=== PATIENT | female | born 1945 | race Caucasian/White ===

== ENCOUNTER 2022-12-26 11:22 | Inpatient (IN) | payer MEDICARE ==
[~2022-12-26] VITALS: Ht 170.2 cm; Wt 106.4 kg
[~2022-12-26 11:22] MED LIST: ATORVASTATIN PO; CHOL200013 PO; COUMADIN PO; CYAN250014 PO; ESCITALOPRAM PO; FERR159T2 PO; LEVO112T7 PO; LEVOTHYROXINE PO; METOPROLOL TAR PO; OMEPRAZOLE PO; VALS80TA2 PO; [UNRECOGNIZED DRUG - OTHER] PO
[2022-12-26 11:43] LABS: BASOPHILS % (AUTO) 0.5 % (0.0-5.0); EOSINOPHILS % (AUTO) 1.7 % (0.0-8.0); HEMATOCRIT 40.2 % (36-48); LYMPHOCYTES % (AUTO) 13.9 % (21.0-51.0); MEAN CORPUSCULAR HEMOGLOBIN 28.8 pg (27.0-33.0); MEAN CORPUSCULAR HGB CONC 31.8 g/dL (32.0-36.0); MEAN CORPUSCULAR VOLUME 90.3 fL (79-99); MONOCYTES % (AUTO) 7.7 % (3.0-13.0); NEUTROPHILS % (AUTO) 75.9 % (40.0-77.0); PLATELET COUNT (AUTO) 145 K/uL (130-400); RED BLOOD CELL COUNT(AUTO) 4.45 MIL/uL (4.00-5.50); RED CELL DISTRIBUTION WIDTH 14.4 % (11.0-15.5); WHITE BLOOD COUNT (AUTO) 5.8 K/uL (4.8-10.8)
[2022-12-26 11:53] LABS: POTASSIUM 3.7 mmol/L (3.5-5.1)
[2022-12-26 11:57] LABS: ALBUMIN 3.2 g/dL (3.5-5.0); MAGNESIUM 1.6 mg/dL (1.80-2.40); TOTAL PROTEIN, SERUM 6.3 g/dL (6.0-8.3)
[2022-12-26 12:33] LABS: B-TYPE NATRIURETIC PEPTIDE 223 pg/mL (0-100)
[2022-12-26 12:35] LABS: APPEARANCE,URINE CLEAR (CLEAR); BILIRUBIN,URINE NEGATIVE (NEGATIVE); COLOR,URINE LIGHT-YELLOW (YELLOW); GLUCOSE, URINE (UA) NEGATIVE (NEGATIVE); KETONES,URINE NEGATIVE (NEGATIVE); LEUKOCYTE ESTERASE ,URINE 25 Leu/uL (NEGATIVE); NITRATE,URINE NEGATIVE (NEGATIVE); OCCULT BLOOD,URINE NEGATIVE (NEGATIVE); PH,URINE 6.5 (5.0-8.0); PROTEIN,URINE 20 mg/dL (NEGATIVE); UROBILINOGEN,URINE 3 mg/dL (0.2-1.0)
[2022-12-26 12:55] LABS: BACTERIA,URINE RARE /HPF (None Seen); SQUAMOUS EPITHELIAL CELL,UR RARE /HPF (0-2)
[2022-12-26 15:24] LABS: INR 2.42 (0.85-1.15); PROTHROMBIN TIME 25.1 SEC (9.6-11.6)
[2022-12-26 15:25] LABS: PARTIAL THROMBOPLASTIN TIME 38.4 SEC (26.3-35.5)
[2022-12-26] MEDS ORDERED: MAGNESIUM 2GM PREMIX 50ML 50 ML IV ONE ×2 (15:25→15:30)
[2022-12-26] MEDS ORDERED: IOHEXOL 350 MG/ML 100ML INFUS..BTL IV ONE (15:33)
[2022-12-26] MEDS ORDERED: FUROSEMIDE 40MG VIAL IV ONE (19:00)
[2022-12-26] MEDS ORDERED: HYDRALAZINE 20MG/ML VIAL IV PRN (20:00)
[2022-12-26] MEDS: FAMOTIDINE 20MG VIAL IV SCH (22:00)
[2022-12-26 22:35] VITALS: BP 135/90
[2022-12-26] MEDS ORDERED: WARF6TAB49 PO (22:49)
[2022-12-26] MEDS ORDERED: WARF4TAB72 PO (22:49)
[2022-12-27] MEDS ORDERED: ONDANSETRON 4MG INJ IVP PRN (03:30)
[2022-12-27] MEDS ORDERED: ACETAMINOPHEN 325 MG TAB PO PRN (03:30)
[2022-12-27] MEDS ORDERED: LIDOCAINE HCL-MPF 1% 2ML VIAL IV PRN (03:30)
[2022-12-27] MEDS ORDERED: POTASSIUM CHLORIDE 10% ELIXIR 20 MEQ/15 ML UDCUP PO PRN (03:30)
[2022-12-27] MEDS ORDERED: KCL 20 MEQ ERTAB PO PRN (03:30)
[2022-12-27] MEDS ORDERED: POTASSIUM CHLORIDE 20MEQ/100ML 100 ML IV PRN (03:30)
[2022-12-27] MEDS ORDERED: MAGNESIUM 2GM PREMIX 50ML 50 ML IV PRN (03:30)
[2022-12-27 04:48] VITALS: BP 136/71
[2022-12-27 06:21] LABS: CREATININE 0.7 mg/dL (0.5-1.5); MAGNESIUM 1.8 mg/dL (1.80-2.40); POTASSIUM 3.5 mmol/L (3.5-5.1)
[2022-12-27 06:28] LABS: INR 2.37 (0.85-1.15); PROTHROMBIN TIME 24.6 SEC (9.6-11.6)
[2022-12-27 07:00] VITALS: BP 137/92
[2022-12-27] MEDS: FAMOTIDINE 20MG VIAL IV SCH ×2 (08:46→19:28)
[2022-12-27 11:00] VITALS: BP 128/78
[2022-12-27] MEDS ORDERED: CA C1TAB90 PO (11:16)
[2022-12-27] MEDS ORDERED: METO-408 PO (11:16)
[2022-12-27] MEDS ORDERED: POTA-200 PO (11:16)
[2022-12-27] MEDS ORDERED: VITA-348 PO (11:16)
[2022-12-27] MEDS ORDERED: ESCI-8 PO (11:16)
[2022-12-27] MEDS ORDERED: FURO40TA5 PO (11:16)
[2022-12-27] MEDS ORDERED: FLEC100 PO (11:16)
[2022-12-27] MEDS ORDERED: VALS80TA30 PO (11:16)
[2022-12-27] MEDS ORDERED: CYAN100084 PO (11:16)
[2022-12-27] MEDS ORDERED: ATOR10TA69 PO (11:16)
[2022-12-27] MEDS ORDERED: OMEP20CA12 PO (11:16)
[2022-12-27] MEDS ORDERED: LEVO112C4 PO (11:16)
[2022-12-27] MEDS: PHARMACY COMMUNICATION MISC SCH ×2 (13:30→19:28)
[2022-12-27] MEDS ORDERED: PHARMACY COMMUNICATION MISC SCH (13:30)
[2022-12-27 16:00] VITALS: BP 138/53
[2022-12-27] MEDS ORDERED: WARFARIN SODIUM 2 MG TAB PO SCH (16:00)
[2022-12-27] MEDS: FLECAINIDE ACETATE 100 MG TABLET PO SCH (19:28)
[2022-12-27] MEDS: ATORVASTATIN 10 MG TABLET PO SCH (19:28)
[2022-12-27 20:27] VITALS: BP 139/66
[2022-12-27 23:59] VITALS: BP 105/74
[2022-12-28] MEDS: PHARMACY COMMUNICATION MISC SCH ×2 (01:14→19:30)
[2022-12-28 04:55] LABS: EOSINOPHILS % (AUTO) 2.9 % (0.0-8.0); HEMATOCRIT 36.9 % (36-48); LYMPHOCYTES % (AUTO) 21.3 % (21.0-51.0); MEAN CORPUSCULAR HEMOGLOBIN 28.5 pg (27.0-33.0); MEAN CORPUSCULAR HGB CONC 31.2 g/dL (32.0-36.0); MEAN CORPUSCULAR VOLUME 91.6 fL (79-99); MONOCYTES % (AUTO) 11.1 % (3.0-13.0); NEUTROPHILS % (AUTO) 63.5 % (40.0-77.0); PLATELET COUNT (AUTO) 124 K/uL (130-400); RED BLOOD CELL COUNT(AUTO) 4.03 MIL/uL (4.00-5.50); RED CELL DISTRIBUTION WIDTH 14.6 % (11.0-15.5); WHITE BLOOD COUNT (AUTO) 4.1 K/uL (4.8-10.8)
[2022-12-28] MEDS: LEVOTHYROXINE 112 MCG TABLET PO SCH (04:57)
[2022-12-28 04:59] VITALS: BP 138/74
[2022-12-28 05:11] LABS: INR 2.49 (0.85-1.15); PROTHROMBIN TIME 25.8 SEC (9.6-11.6)
[2022-12-28 05:23] LABS: ALBUMIN 2.7 g/dL (3.5-5.0); CREATININE 0.7 mg/dL (0.5-1.5); MAGNESIUM 1.9 mg/dL (1.80-2.40); POTASSIUM 3.7 mmol/L (3.5-5.1); TOTAL PROTEIN, SERUM 5.6 g/dL (6.0-8.3)
[2022-12-28 05:25] LABS: B-TYPE NATRIURETIC PEPTIDE 124 pg/mL (0-100)
[2022-12-28] MEDS ORDERED: NON-FORMULARY MEDICATION 1 EACH (Levothyroxine Sodium (Levothyroxine) 112 MCG) PO SCH (07:30)
[2022-12-28 08:00] VITALS: BP 143/72
[2022-12-28] MEDS: CA CARB PO SCH (08:39)
[2022-12-28] MEDS: METOPROLOL SUCCINATE 25 MG TAB.SR.24H PO SCH (08:39)
[2022-12-28] MEDS: VITAMIN E 400 UNIT CAPSULE PO SCH (08:39)
[2022-12-28] MEDS: VALSARTAN 80 MG PO SCH (08:39)
[2022-12-28] MEDS: ZN OXIDE PO SCH (08:39)
[2022-12-28] MEDS: CYANOCOBALAMIN (VITAMIN B-12) 1,000 MCG TABLET PO SCH (08:39)
[2022-12-28] MEDS: FAMOTIDINE 20MG VIAL IV SCH ×2 (08:39→19:36)
[2022-12-28] MEDS: FLECAINIDE ACETATE 100 MG TABLET PO SCH ×2 (08:39→19:36)
[2022-12-28] MEDS: VIT D3 PO SCH (08:39)
[2022-12-28] MEDS: ESCITALOPRAM 10MG PO SCH (08:39)
[2022-12-28] MEDS: MAG OX PO SCH (08:39)
[2022-12-28] MEDS ORDERED: VITAMIN E MIXED 400 UNIT PO SCH (09:00)
[2022-12-28] MEDS ORDERED: CYANOCOBALAMIN 1000 MCG PO SCH (09:00)
[2022-12-28] MEDS ORDERED: NON-FORMULARY MEDICATION 1 EACH (Escitalopram Oxalate 10 MG) PO SCH (09:00)
[2022-12-28 11:58] VITALS: BP 136/78
[2022-12-28 15:55] VITALS: BP 149/74
[2022-12-28] MEDS: WARFARIN SODIUM 2 MG TAB PO SCH (16:00)
[2022-12-28] MEDS: ATORVASTATIN 10 MG TABLET PO SCH (19:36)
[2022-12-28 20:38] VITALS: BP 126/74
[2022-12-28 23:54] VITALS: BP 130/86
[2022-12-29] MEDS: PHARMACY COMMUNICATION MISC SCH ×2 (01:10→07:30)
[2022-12-29 04:44] VITALS: BP 141/69
[2022-12-29] MEDS: LEVOTHYROXINE 112 MCG TABLET PO SCH (05:10)
[2022-12-29 08:15] VITALS: BP 137/75
[2022-12-29] MEDS: VALSARTAN 80 MG PO SCH (09:00)
[2022-12-29] MEDS: ESCITALOPRAM 10MG PO SCH (09:00)
[2022-12-29] MEDS: CYANOCOBALAMIN (VITAMIN B-12) 1,000 MCG TABLET PO SCH (09:00)
[2022-12-29] MEDS: METOPROLOL SUCCINATE 25 MG TAB.SR.24H PO SCH (09:00)
[2022-12-29] MEDS: CA CARB PO SCH (09:00)
[2022-12-29] MEDS: MAG OX PO SCH (09:00)
[2022-12-29] MEDS: VITAMIN E 400 UNIT CAPSULE PO SCH (09:00)
[2022-12-29] MEDS: VIT D3 PO SCH (09:00)
[2022-12-29] MEDS: ZN OXIDE PO SCH (09:00)
[2022-12-29] MEDS: FLECAINIDE ACETATE 100 MG TABLET PO SCH (09:00)
[2022-12-29] MEDS: FAMOTIDINE 20MG VIAL IV SCH (09:39)
[2022-12-29] MEDS ORDERED: FURO20TA6 PO (10:54)
[2022-12-29 11:46] VITALS: BP 135/78
[2022-12-29] MEDS: WARFARIN SODIUM 2 MG TAB PO SCH (15:54)
[2022-12-29 16:00] VITALS: BP 150/77
[2023-01-03] MEDS ORDERED: NON-FORMULARY MEDICATION 1 EACH (Warfarin Sodium 6 MG) PO SCH (09:00)
== END 2022-12-29 18:25 | disposition home or self-care (01) | DRG 291 ==
LOC: EDH 11:22 → EDHIP 19:54 → 4BH 21:42
PROVIDERS: ADMIT Hospitalist; ATTEND Hospitalist
DX: I11.0 Hypertensive heart disease with heart failure (principal); I50.43 Acute on chronic combined systolic (congestive) and diastolic (congestive) heart failure; J96.01 Acute respiratory failure with hypoxia; I48.20 Chronic atrial fibrillation, unspecified; D68.69 Other thrombophilia; E03.9 Hypothyroidism, unspecified; Z79.01 Long term (current) use of anticoagulants; E78.00 Pure hypercholesterolemia, unspecified; I25.10 Atherosclerotic heart disease of native coronary artery without angina pectoris; Z85.3 Personal history of malignant neoplasm of breast; Z86.711 Personal history of pulmonary embolism
CPT/HCPCS: 36415; 71045; 71270; 80048; 80053; 81001; 83735; 83880; 84484; 85025; 85610; 85730; 93005; 93306; 94760; G0378; J1940; J3475; J3490; Q9967

== ENCOUNTER 2024-03-12 06:18 | Day surgery (SDC) | payer MEDICARE ==
[2024-03-09 14:32] LABS: BASOPHILS # (AUTO) 0.03 K/uL (0.00-0.20); BASOPHILS % (AUTO) 0.6 % (0.0-5.0); EOSINOPHILS # (AUTO) 0.19 K/uL (0.00-0.70); HEMATOCRIT 40.3 % (36-48); IMMATURE GRANULOCYTE ABSOLUTE 0.01 K/uL (0-1); LYMPHOCYTES # (AUTO) 1.1 K/uL (1.0-4.8); LYMPHOCYTES % (AUTO) 21.9 % (21.0-51.0); MEAN CORPUSCULAR HGB CONC 30.8 g/dL (32.0-36.0); MONOCYTES # (AUTO) 0.5 K/uL (0.1-1.0); MONOCYTES % (AUTO) 9.6 % (3.0-13.0); NEUTROPHILS # (AUTO) 3.1 K/uL (1.8-7.7); NEUTROPHILS % (AUTO) 63.7 % (40.0-77.0); PLATELET COUNT (AUTO) 154 K/uL (130-400); RED BLOOD CELL COUNT(AUTO) 4.43 MIL/uL (4.00-5.50); RED CELL DISTRIBUTION WIDTH 14.6 % (11.0-15.5); WHITE BLOOD COUNT (AUTO) 4.8 K/uL (4.8-10.8)
[2024-03-09 14:43] LABS: PARTIAL THROMBOPLASTIN TIME 48.8 SEC (26.3-35.5)
[2024-03-09 14:45] LABS: CREATININE 0.9 mg/dL (0.5-1.0); POTASSIUM 4.2 mmol/L (3.5-5.1)
[2024-03-09 15:29] LABS: PROTHROMBIN TIME 43.4 SEC (9.6-11.6)
[2024-03-09 15:30] LABS: INR 4.08 (0.85-1.15)
[2024-03-09 16:23] VITALS: BP 115/55; PULSE 70; RESP 20
[~2024-03-12] VITALS: Ht 170.2 cm; Wt 105.7 kg
[2024-03-12] VITALS (8 sets, daily range): BP systolic 103–135; BP diastolic 38–64; PULSE 44–74; RESP 16–18
[~2024-03-12 06:18] MED LIST changes: +ATOR10TA69 PO; -ATORVASTATIN PO; +CHOL100040 PO; -CHOL200013 PO; -COUMADIN PO; +CYAN100084 PO; -CYAN250014 PO; +DRON400T7 PO; +ESCI-8 PO; -ESCITALOPRAM PO; -FERR159T2 PO; +FURO40TA5 PO; +LEVO112C4 PO; -LEVO112T7 PO; -LEVOTHYROXINE PO; +LOSA-418 PO; +METO50TA9 PO; -METOPROLOL TAR PO; +OMEP20CA12 PO; -OMEPRAZOLE PO; +OXYB5TAB20 PO; +POTA-200 PO; +VALS40TA11 PO; -VALS80TA2 PO; +WARF-67 PO; -[UNRECOGNIZED DRUG - OTHER] PO
[2024-03-12 06:57] LABS: PARTIAL THROMBOPLASTIN TIME 48.2 SEC (26.3-35.5)
[2024-03-12] MEDS ORDERED: LIDOCAINE HCL 2% VISCOUS 15 ML UDCUP PO ONE (07:00)
[2024-03-12 07:37] LABS: PROTHROMBIN TIME 39.7 SEC (9.6-11.6)
[2024-03-12 07:38] LABS: INR 3.71 (0.85-1.15)
[2024-03-12] MEDS: 0.9%NACL 1000ML 1,000 ML IV SCH (08:16)
[2024-03-12] MEDS ORDERED: PROPOFOL 10 MG/ML 20ML VIAL IV ONE (09:20)
[2024-03-12] MEDS ORDERED: LIDOCAINE PF 100MG/5ML (2%) SYRINGE 5ML ONE (09:20)
[2024-03-12] MEDS ORDERED: SUCCINYLCHOLINE CHLORIDE 20 MG/ML 10 ML VIAL ONE (09:20)
[2024-03-12] MEDS ORDERED: PHENYLEPHRINE HCL 10 MG/ML 1ML VIAL IV ONE (09:21)
== END 2024-03-12 10:50 | disposition home or self-care (01) ==
LOC: DAH 06:18 → EDSTATUS 07:30 → DAH 10:50
PROVIDERS: ATTEND Internal Medicine Interventional Cardiology
DX: I48.91 Unspecified atrial fibrillation (principal); I34.0 Nonrheumatic mitral (valve) insufficiency; I44.0 Atrioventricular block, first degree; I49.1 Atrial premature depolarization; Z88.5 Allergy status to narcotic agent; Z98.890 Other specified postprocedural states; Z79.899 Other long term (current) drug therapy
CPT/HCPCS: 80048; 85025; 85610 ×2; 85730 ×2; 36415 ×2; 92960 ×2; 93312; 93005 ×2; J7030; J2001; J2704; J2371; A4620; A4215; A4657; A4222; A4221; A4663; A4216; A4606; A4223 ×3; J0330; J3490